=== PATIENT | female | born 1995 | race Caucasian/White ===

== ENCOUNTER → 2018-01-31 | Outpatient (CLI) | payer OTHER ==
--- NOTE | 2018-01-31 18:42 | US ---
EXAM DESCRIPTION: Right upper quadrant abdominal sonogram CLINICAL HISTORY: RIGHT UPPER QUAD PN COMPARISON: None Available. TECHNIQUE: Right upper quadrant ultrasound FINDINGS: Pancreas: Visualized portions of the pancreas are unremarkable. Bowel gas obscures some areas. Aorta/inferior vena cava: No aortic aneurysm. Normal inferior vena cava. Liver: The liver is homogeneous in texture with increased echogenicity consistent with diffuse hepatic steatosis. No focal liver lesion or intrahepatic bile duct dilatation. No liver surface irregularity. Normal appearance of the portal vein and hepatic veins. Gallbladder: Gallbladder appears normal with no intraluminal stones or wall thickening. Burleson sign was reported as positive but this is not likely significant without the presence of gallstones. Common bile duct: Normal caliber measuring 4.0 mm. Right kidney: Renal length is 11.1 cm. Normal cortical echogenicity. Cortical thickness is normal. No hydronephrosis is seen. No renal mass or shadowing calculus. IMPRESSION: Diffuse hepatic steatosis. Otherwise unremarkable sonogram of the right upper abdomen. Electronically signed by: Bg Sutton MD 01/31/2018 6:40 PM [facility]
== END ==
LOC: US 16:29
PROVIDERS: ATTEND Nurse Practitioner Family
DX: R10.11 Right upper quadrant pain (principal); K76.0 Fatty (change of) liver, not elsewhere classified